=== PATIENT | female | born 1950 | race Caucasian/White ===

== ENCOUNTER 2018-07-22 12:27 | Inpatient (IN) | payer MEDICAID ==
[2018-07-22 12:54] LABS: ADD MAN DIFF? NO
[2018-07-22 12:56] LABS: WHITE BLOOD COUNT 10.5 10^3/ul (4.8-10.8)
[2018-07-22 12:56] LABS: BASOPHIL # 0.1 10^3/ul (0.0-0.1); BASOPHILS % 0.8 % (0.0-2.0); EOSINOPHILS # 0.2 10^3/ul (0.0-0.5); EOSINOPHILS % 1.5 % (0.0-7.0); HEMATOCRIT 39.9 % (37.0-47.0); HEMOGLOBIN 13.5 g/dl (12.0-16.0); LYMPHOCYTES # 2.6 10^3/ul (0.8-2.9); LYMPHOCYTES % 24.4 % (15.0-51.0); MEAN CORPUSCULAR HEMOGLOBIN 32.5 pg (29.0-33.0); MEAN CORPUSCULAR HGB CONC 33.8 g/dl (32.0-37.0); MEAN CORPUSCULAR VOLUME 95.9 fl (82.0-101.0); MEAN PLATELET VOLUME 8.8 fl (7.4-10.4); MONOCYTE # 0.8 10^3/ul (0.3-0.9); MONOCYTES % 7.8 % (0.0-11.0); NEUTROPHIL # 6.9 10^3/ul (1.6-7.5); NEUTROPHILS % 65.2 % (39.0-77.0); PLATELET COUNT 226 10^3/UL (140-415); RED BLOOD COUNT 4.16 10^6/ul (4.20-5.40)
[2018-07-22 13:17] LABS: ALANINE AMINOTRANSFERASE 23 IU/L (13-69); ALBUMIN/GLOBULIN RATIO 1.37; ALKALINE PHOSPHATASE 67 IU/L (42-121); ANION GAP 8 (5-13); ASPARTATE AMINO TRANSFERASE 20 IU/L (15-46); BILIRUBIN,INDIRECT 0.5 mg/dl (0-1.1); BILIRUBIN,TOTAL 0.5 mg/dl (0.2-1.3); BLOOD UREA NITROGEN 27 mg/dl (7-20); CALCIUM 9.1 mg/dl (8.4-10.2); CARBON DIOXIDE 25 mmol/L (21-31); CHLORIDE 102 mmol/L (97-110); CREATINE KINASE 62 IU/L (23-200); CREATININE 1.02 mg/dl (0.44-1.00); Estimated GFR 54 mL/min (>60); GLUCOSE 311 mg/dl (70-220); INR 0.97; LIPASE 136 U/L (23-300); PARTIAL THROMBOPLASTIN TIME 29.7 Sec (23.0-35.0); POTASSIUM 4.3 mmol/L (3.5-5.1); SALICYLATE 1.9 mg/dl (5.0-30.0); SODIUM 135 mmol/L (135-144); TOTAL PROTEIN 6.9 g/dl (6.1-8.1)
[2018-07-22 13:19] LABS: ACETAMINOPHEN < 10.0 ug/ml (10.0-30.0); ETHANOL < 10.0 mg/dl (0-0)
[2018-07-22 13:25] LABS: CK-MB 1.26 ng/ml (0.0-2.4)
[2018-07-22] MEDS: SOD CHLORIDE 0.9% 1,000 ML IV (13:26)
[2018-07-22] MEDS: DILTIAZEM 25 MG INJ IV (13:26)
[2018-07-22 13:30] LABS: TROPONIN-I < 0.012 ng/ml (0.000-0.120)
[2018-07-22] MEDS ORDERED: LORAZEPAM 2 MG INJ IV (13:30)
[2018-07-22 13:31] LABS: B-TYPE NATRIURETIC PEPTIDE 2750 PG/ML (0-125)
[2018-07-22 14:17] LABS: AMPHETAMINE/METHAMPHETAMINE Negative (NEGATIVE); BARBITURATES Negative (NEGATIVE); BENZODIAZEPINES Negative (NEGATIVE); CANNABINOIDS Negative (NEGATIVE); COCAINE Negative (NEGATIVE); OPIATES Negative (NEGATIVE)
[2018-07-22] MEDS: INSULIN LISPRO 100 UNIT/ML VIAL SC (14:22)
[2018-07-22] MEDS: ADENOSINE 6 MG INJ IV ×2 (14:45→14:55)
[2018-07-22] MEDS: AMIODARONE 150MG/D5W BOLUS IV* (14:59)
[2018-07-22] MEDS: CEFEPIME 1GM/50 ML (PMX) 50 ML IVPB (14:59)
[2018-07-22 15:28] LABS: ADD UMIC YES; UR ASCORBIC ACID NEGATIVE (NEGATIVE); UR BILIRUBIN (Dip) NEGATIVE (NEGATIVE); UR BLOOD (Dip) 1+ mg/dL (NEGATIVE); UR CLARITY SLIGHTLY CLOUDY (CLEAR); UR COLOR STRAW (YELLOW); UR GLUCOSE (Dip) 2+ mg/dL (NEGATIVE); UR KETONES (Dip) NEGATIVE (NEGATIVE); UR LEUKOCYTE ESTERASE (Dip) 2+ Leu/ul (NEGATIVE); UR NITRITE (Dip) NEGATIVE (NEGATIVE); UR RBC 1 /HPF (0-5); UR SPECIFIC GRAVITY (Dip) 1.005 (1.003-1.030); UR SQUAMOUS EPITHELIAL CELL FEW /HPF (FEW); UR TOTAL PROTEIN (Dip) NEGATIVE (NEGATIVE); UR UROBILINOGEN (Dip) NEGATIVE (NEGATIVE); UR WBC 10 /HPF (0-5)
[2018-07-22] MEDS: DIAZEPAM 5 MG/ML SYG IV (15:41)
[2018-07-22] MEDS: VANCOMYCIN 1 GM (PMX) 250 ML IVPB (15:53)
[2018-07-22] MEDS ORDERED: ONDANSETRON 4 MG INJ IV (16:00)
[2018-07-22] MEDS ORDERED: ACETAMINOPHEN 325 MG TAB PO (16:00)
[2018-07-22] MEDS ORDERED: NACL 0.9% 3 ML SYG IV (16:30)
[2018-07-22] MEDS ORDERED: HYDROCODONE/APAP (5/325) TAB PO (16:30)
[2018-07-22] MEDS ORDERED: GLUCOSE GEL 15 GRAM TUBE PO ×2 (17:30)
[2018-07-22] MEDS ORDERED: GLUCAGON 1 MG INJ IM (17:30)
[2018-07-22] MEDS ORDERED: GLUCOSE GEL 15 GRAM TUBE BUCCAL (17:30)
[2018-07-22] MEDS ORDERED: DEXTROSE 50% 50 ML SYRINGE IV ×2 (17:30)
[2018-07-22 21:30] LABS: FREE THYROXINE INDEX (Calc) 2.41 ug/ml (0.65-3.89); T3 UPTAKE 38.2 % (23.5-40.5); T4 (THYROXINE) 6.3 ug/dl (5.5-11.0)
[2018-07-22] MEDS: METOPROLOL 50 MG TAB PO (22:24)
[2018-07-22] MEDS: INSULIN ASPART [NOVOLOG] 3 ML PEN SC ×3 (22:31→22:45)
[2018-07-22] MEDS: INSULIN GLARGINE [LANTus] (100 UNITS/ML) SYG SC (23:31)
[2018-07-23] MEDS: traZODone 50 MG TAB PO ×2 (00:44→21:02)
[2018-07-23] MEDS ORDERED: PENDING SANTYL ORDER FOR WOUND CARE XX (01:30)
[2018-07-23 07:06] LABS: ADD MAN DIFF? NO
[2018-07-23 07:10] LABS: WHITE BLOOD COUNT 8.4 10^3/ul (4.8-10.8)
[2018-07-23 07:10] LABS: BASOPHIL # 0.1 10^3/ul (0.0-0.1); BASOPHILS % 0.8 % (0.0-2.0); EOSINOPHILS # 0.3 10^3/ul (0.0-0.5); EOSINOPHILS % 3.1 % (0.0-7.0); HEMATOCRIT 36.5 % (37.0-47.0); HEMOGLOBIN 11.9 g/dl (12.0-16.0); LYMPHOCYTES # 2.3 10^3/ul (0.8-2.9); LYMPHOCYTES % 26.9 % (15.0-51.0); MEAN CORPUSCULAR HEMOGLOBIN 31.8 pg (29.0-33.0); MEAN CORPUSCULAR HGB CONC 32.6 g/dl (32.0-37.0); MEAN CORPUSCULAR VOLUME 97.6 fl (82.0-101.0); MEAN PLATELET VOLUME 9.2 fl (7.4-10.4); MONOCYTE # 0.8 10^3/ul (0.3-0.9); NEUTROPHILS % 59.8 % (39.0-77.0); PLATELET COUNT 220 10^3/UL (140-415); RED BLOOD COUNT 3.74 10^6/ul (4.20-5.40); RED CELL DISTRIBUTION WIDTH 13.4 % (11.5-14.5)
[2018-07-23 07:22] LABS: HEMOGLOBIN A1C 9.6 % (0-5.9)
[2018-07-23 07:28] LABS: ALANINE AMINOTRANSFERASE 25 IU/L (13-69); ALBUMIN 3.6 g/dl (3.3-4.9); ALBUMIN/GLOBULIN RATIO 1.38; ALKALINE PHOSPHATASE 55 IU/L (42-121); ANION GAP 5 (5-13); ASPARTATE AMINO TRANSFERASE 15 IU/L (15-46); BILIRUBIN,INDIRECT 0.5 mg/dl (0-1.1); BILIRUBIN,TOTAL 0.5 mg/dl (0.2-1.3); BLOOD UREA NITROGEN 31 mg/dl (7-20); CARBON DIOXIDE 25 mmol/L (21-31); CHLORIDE 110 mmol/L (97-110); Estimated GFR 50 mL/min (>60); GLUCOSE 115 mg/dl (70-220); POTASSIUM 4.2 mmol/L (3.5-5.1); SODIUM 140 mmol/L (135-144); TOTAL PROTEIN 6.2 g/dl (6.1-8.1)
[2018-07-23] MEDS: INSULIN ASPART [NOVOLOG] 3 ML PEN SC ×7 (07:55→20:15)
[2018-07-23] MEDS: ENOXAPARIN 30 MG/0.3 ML SYG SC (08:30)
[2018-07-23] MEDS: ESCITALOPRAM 10 MG TAB PO (08:32)
[2018-07-23] MEDS: METOPROLOL 50 MG TAB PO ×2 (08:32→20:15)
[2018-07-23] MEDS: LOSARTAN 50 MG TAB PO (08:32)
[2018-07-23] MEDS: ASPIRIN (EC) 81 MG TAB PO (08:32)
[2018-07-23] MEDS: FUROSEMIDE 20 MG INJ IV ×2 (08:35→18:14)
[2018-07-23] MEDS: APIXABAN 5 MG TABLET PO (20:13)
[2018-07-23] MEDS: INSULIN GLARGINE [LANTus] (100 UNITS/ML) SYG SC (20:36)
[2018-07-24] MEDS: FUROSEMIDE 20 MG INJ IV ×2 (06:22→17:46)
[2018-07-24] MEDS: INSULIN ASPART [NOVOLOG] 3 ML PEN SC ×7 (08:54→21:00)
[2018-07-24] MEDS: ESCITALOPRAM 10 MG TAB PO (09:22)
[2018-07-24] MEDS: APIXABAN 5 MG TABLET PO ×2 (09:22→21:19)
[2018-07-24] MEDS: METOPROLOL 50 MG TAB PO ×2 (09:23→21:00)
[2018-07-24] MEDS: LOSARTAN 50 MG TAB PO (09:23)
[2018-07-24 12:41] LABS: ANION GAP 8 (5-13); BLOOD UREA NITROGEN 36 mg/dl (7-20); CALCIUM 9.8 mg/dl (8.4-10.2); CARBON DIOXIDE 31 mmol/L (21-31); CHLORIDE 103 mmol/L (97-110); CREATININE 1.12 mg/dl (0.44-1.00); Estimated GFR 49 mL/min (>60); GLUCOSE 106 mg/dl (70-220); POTASSIUM 3.8 mmol/L (3.5-5.1); SODIUM 142 mmol/L (135-144)
[2018-07-24] MEDS: INSULIN GLARGINE [LANTus] (100 UNITS/ML) SYG SC (21:25)
[2018-07-24] MEDS: traZODone 50 MG TAB PO ×2 (23:16→23:34)
[2018-07-25] MEDS: FUROSEMIDE 20 MG INJ IV (06:37)
[2018-07-25] MEDS: INSULIN ASPART [NOVOLOG] 3 ML PEN SC ×4 (07:55→11:56)
[2018-07-25] MEDS: APIXABAN 5 MG TABLET PO (08:42)
[2018-07-25] MEDS: ESCITALOPRAM 10 MG TAB PO (08:42)
[2018-07-25] MEDS: METOPROLOL 50 MG TAB PO (08:43)
[2018-07-25] MEDS: LOSARTAN 50 MG TAB PO (08:44)
== END 2018-07-25 13:05 | disposition home or self-care (01) | DRG 308 ==
LOC: E/R 12:27 → TEL 15:46
PROC: 5A2204Z Restoration of Cardiac Rhythm, Single (ICD-10-PCS; principal; 2018-07-22)
DX: I48.92 Unspecified atrial flutter (principal); J18.9 Pneumonia, unspecified organism; I50.33 Acute on chronic diastolic (congestive) heart failure; J81.1 Chronic pulmonary edema; Z72.0 Tobacco use; R73.9 Hyperglycemia, unspecified; E11.9 Type 2 diabetes mellitus without complications; R09.02 Hypoxemia; I95.9 Hypotension, unspecified
CPT/HCPCS: 71045; 80048; 80053; 80307; 81001; 82550; 82553; 82962; 83036; 83690; 83880; 84436; 84443; 84479; 84484; 85025; 85610; 85730; 87040-91; 87086; 93005; 93306; 96374; 96375; 99291-25

== ENCOUNTER 2018-08-14 21:14 | Inpatient (IN) | payer MEDICAID ==
[2018-08-14 22:05] LABS: ADD MAN DIFF? NO
[2018-08-14 22:08] LABS: BASOPHILS % 0.4 % (0.0-2.0); EOSINOPHILS % 0.1 % (0.0-7.0); HEMATOCRIT 38.5 % (37.0-47.0); HEMOGLOBIN 12.8 g/dl (12.0-16.0); LYMPHOCYTES # 1.4 10^3/ul (0.8-2.9); LYMPHOCYTES % 13.5 % (15.0-51.0); MEAN CORPUSCULAR HEMOGLOBIN 32.2 pg (29.0-33.0); MEAN CORPUSCULAR HGB CONC 33.2 g/dl (32.0-37.0); MEAN CORPUSCULAR VOLUME 96.7 fl (82.0-101.0); MEAN PLATELET VOLUME 8.9 fl (7.4-10.4); MONOCYTE # 0.9 10^3/ul (0.3-0.9); MONOCYTES % 8.5 % (0.0-11.0); NEUTROPHIL # 8.1 10^3/ul (1.6-7.5); PLATELET COUNT 201 10^3/UL (140-415); RED BLOOD COUNT 3.98 10^6/ul (4.20-5.40); RED CELL DISTRIBUTION WIDTH 12.3 % (11.5-14.5)
[2018-08-14 22:08] LABS: WHITE BLOOD COUNT 10.5 10^3/ul (4.8-10.8)
[2018-08-14 22:14] LABS: ALANINE AMINOTRANSFERASE 23 IU/L (13-69); ALBUMIN/GLOBULIN RATIO 1.17; ALKALINE PHOSPHATASE 75 IU/L (42-121); ANION GAP 8 (5-13); ASPARTATE AMINO TRANSFERASE 18 IU/L (15-46); BILIRUBIN,INDIRECT 0.5 mg/dl (0-1.1); BILIRUBIN,TOTAL 0.5 mg/dl (0.2-1.3); BLOOD UREA NITROGEN 25 mg/dl (7-20); CALCIUM 9.2 mg/dl (8.4-10.2); CARBON DIOXIDE 30 mmol/L (21-31); CHLORIDE 98 mmol/L (97-110); CREATININE 1.06 mg/dl (0.44-1.00); Estimated GFR 52 mL/min (>60); GLUCOSE 224 mg/dl (70-220); LIPASE 80 U/L (23-300); POTASSIUM 3.9 mmol/L (3.5-5.1); SODIUM 136 mmol/L (135-144); TOTAL PROTEIN 7.4 g/dl (6.1-8.1)
[2018-08-14 22:20] LABS: INR 1.01; PROTIME 13.4 Sec (11.9-14.9)
[2018-08-14 22:21] LABS: PARTIAL THROMBOPLASTIN TIME 31.1 Sec (23.0-35.0)
[2018-08-14 22:25] LABS: TROPONIN-I < 0.012 ng/ml (0.000-0.120)
[2018-08-14] MEDS: NITROGLYCERIN 2% 1 GM OINT PKT TD (22:25)
[2018-08-14] MEDS ORDERED: ONDANSETRON 4 MG INJ IV (23:30)
[2018-08-15] MEDS ORDERED: ONDANSETRON 4 MG INJ IV (02:00)
[2018-08-15] MEDS ORDERED: traZODone 50 MG TAB PO (02:00)
[2018-08-15] MEDS ORDERED: ALBUTEROL/IPRATROPIUM (NEB) 3 ML AMP HHN (02:00)
[2018-08-15] MEDS ORDERED: ACETAMINOPHEN 325 MG TAB PO (02:00)
[2018-08-15] MEDS ORDERED: NACL 0.9% 3 ML SYG IV (02:00)
[2018-08-15] MEDS ORDERED: NITROGLYCERIN (SL) 0.4 MG TAB SL (02:00)
[2018-08-15] MEDS: ACETAMINOPHEN 325 MG TAB PO (02:12)
[2018-08-15] MEDS: ACCU-CHEK XX (02:23)
[2018-08-15] MEDS ORDERED: ZOLPIDEM 5 MG TAB PO (02:30)
[2018-08-15] MEDS ORDERED: GLUCOSE GEL 15 GRAM TUBE BUCCAL (02:30)
[2018-08-15] MEDS ORDERED: GLUCAGON 1 MG INJ IM (02:30)
[2018-08-15] MEDS ORDERED: GLUCOSE GEL 15 GRAM TUBE PO ×2 (02:30)
[2018-08-15] MEDS ORDERED: DEXTROSE 50% 50 ML SYRINGE IV ×2 (02:30)
[2018-08-15 02:32] LABS: ADD MAN DIFF? NO
[2018-08-15 02:33] LABS: BASOPHIL # 0.1 10^3/ul (0.0-0.1); BASOPHILS % 0.5 % (0.0-2.0); HEMATOCRIT 37.2 % (37.0-47.0); HEMOGLOBIN 12.6 g/dl (12.0-16.0); LYMPHOCYTES # 1.3 10^3/ul (0.8-2.9); LYMPHOCYTES % 12.6 % (15.0-51.0); MEAN CORPUSCULAR HEMOGLOBIN 32.6 pg (29.0-33.0); MEAN CORPUSCULAR HGB CONC 33.9 g/dl (32.0-37.0); MEAN CORPUSCULAR VOLUME 96.4 fl (82.0-101.0); MEAN PLATELET VOLUME 8.7 fl (7.4-10.4); MONOCYTE # 1.2 10^3/ul (0.3-0.9); MONOCYTES % 11.7 % (0.0-11.0); NEUTROPHIL # 7.4 10^3/ul (1.6-7.5); PLATELET COUNT 190 10^3/UL (140-415); RED BLOOD COUNT 3.86 10^6/ul (4.20-5.40); RED CELL DISTRIBUTION WIDTH 12.4 % (11.5-14.5)
[2018-08-15 02:33] LABS: WHITE BLOOD COUNT 9.9 10^3/ul (4.8-10.8)
[2018-08-15 02:50] LABS: CREATINE KINASE 35 IU/L (23-200)
[2018-08-15 02:53] LABS: ALANINE AMINOTRANSFERASE 25 IU/L (13-69); ALBUMIN 3.9 g/dl (3.3-4.9); ALKALINE PHOSPHATASE 78 IU/L (42-121); ANION GAP 10 (5-13); ASPARTATE AMINO TRANSFERASE 15 IU/L (15-46); BILIRUBIN,INDIRECT 0.6 mg/dl (0-1.1); BILIRUBIN,TOTAL 0.6 mg/dl (0.2-1.3); BLOOD UREA NITROGEN 25 mg/dl (7-20); CALCIUM 8.9 mg/dl (8.4-10.2); CARBON DIOXIDE 27 mmol/L (21-31); CHLORIDE 101 mmol/L (97-110); Estimated GFR 55 mL/min (>60); GLUCOSE 230 mg/dl (70-220); MAGNESIUM 2.2 mg/dl (1.7-2.5); POTASSIUM 4.2 mmol/L (3.5-5.1); SODIUM 138 mmol/L (135-144); TOTAL PROTEIN 6.9 g/dl (6.1-8.1)
[2018-08-15 03:03] LABS: CK INDEX 0.6; CK-MB < 0.22 ng/ml (0.0-2.4); TROPONIN-I < 0.012 ng/ml (0.000-0.120)
[2018-08-15] MEDS ORDERED: NON-FORMULARY/PATIENT OWN MED (Insulin Lispro (Humalog Kwikpen U-100) 15 UNIT) SQ (07:55)
[2018-08-15] MEDS: ESCITALOPRAM 10 MG TAB PO (08:26)
[2018-08-15] MEDS: GABAPENTIN 300 MG CAP PO ×2 (08:26→20:31)
[2018-08-15] MEDS: APIXABAN 5 MG TABLET PO ×2 (08:26→20:31)
[2018-08-15] MEDS: METOPROLOL (XL) 50 MG TAB PO (08:27)
[2018-08-15] MEDS: LOSARTAN 50 MG TAB PO (08:28)
[2018-08-15 08:34] LABS: CREATINE KINASE 34 IU/L (23-200)
[2018-08-15 08:46] LABS: CK INDEX 0.7; CK-MB 0.25 ng/ml (0.0-2.4); TROPONIN-I < 0.012 ng/ml (0.000-0.120)
[2018-08-15] MEDS: INSULIN ASPART [NOVOLOG] 3 ML PEN SC ×7 (10:17→21:26)
[2018-08-15] MEDS ORDERED: INSULIN LISPRO 18 UNIT SQ (17:55)
[2018-08-15] MEDS: CIPROFLOXACIN 400MG/D5W 200 ML IVPB ×2 (18:53→22:49)
[2018-08-15] MEDS: metroNIDAZOLE 500 MG/NS (PMX) 100 ML IVPB ×2 (18:53→22:49)
[2018-08-15] MEDS: DILTIAZEM 25 MG INJ IV (18:54)
[2018-08-15] MEDS: INSULIN GLARGINE [LANTus] (100 UNITS/ML) SYG SC (21:26)
[2018-08-16] MEDS: ACCU-CHEK XX (02:33)
[2018-08-16 03:31] LABS: ADD UMIC YES; UR ASCORBIC ACID 20 mg/dL (NEGATIVE); UR BACTERIA FEW /HPF (NONE SEEN); UR BILIRUBIN (Dip) NEGATIVE (NEGATIVE); UR BLOOD (Dip) 3+ mg/dL (NEGATIVE); UR CLARITY CLOUDY (CLEAR); UR COLOR YELLOW (YELLOW); UR GLUCOSE (Dip) 1+ mg/dL (NEGATIVE); UR GRANULAR CAST FEW /HPF (NONE SEEN); UR HYALINE CAST FEW /HPF (NONE SEEN); UR KETONES (Dip) NEGATIVE (NEGATIVE); UR LEUKOCYTE ESTERASE (Dip) 3+ Leu/ul (NEGATIVE); UR MUCUS FEW /HPF (NONE SEEN); UR NITRITE (Dip) NEGATIVE (NEGATIVE); UR RBC 56 /HPF (0-5); UR SPECIFIC GRAVITY (Dip) 1.018 (1.003-1.030); UR TOTAL PROTEIN (Dip) 2+ mg/dl (NEGATIVE); UR UROBILINOGEN (Dip) NEGATIVE (NEGATIVE); UR WBC > 182 /HPF (0-5)
[2018-08-16] MEDS: metroNIDAZOLE 500 MG/NS (PMX) 100 ML IVPB (05:51)
[2018-08-16 06:48] LABS: ADD MAN DIFF? NO
[2018-08-16 06:51] LABS: BASOPHIL # 0.1 10^3/ul (0.0-0.1); BASOPHILS % 0.6 % (0.0-2.0); EOSINOPHILS % 0.3 % (0.0-7.0); HEMATOCRIT 36.9 % (37.0-47.0); HEMOGLOBIN 12.5 g/dl (12.0-16.0); LYMPHOCYTES # 1.6 10^3/ul (0.8-2.9); LYMPHOCYTES % 18.1 % (15.0-51.0); MEAN CORPUSCULAR HEMOGLOBIN 32.2 pg (29.0-33.0); MEAN CORPUSCULAR HGB CONC 33.9 g/dl (32.0-37.0); MEAN CORPUSCULAR VOLUME 95.1 fl (82.0-101.0); MEAN PLATELET VOLUME 9.2 fl (7.4-10.4); MONOCYTE # 1.3 10^3/ul (0.3-0.9); MONOCYTES % 14.2 % (0.0-11.0); NEUTROPHILS % 66.5 % (39.0-77.0); PLATELET COUNT 178 10^3/UL (140-415); RED BLOOD COUNT 3.88 10^6/ul (4.20-5.40)
[2018-08-16 07:19] LABS: ANION GAP 7 (5-13); BLOOD UREA NITROGEN 27 mg/dl (7-20); CALCIUM 8.7 mg/dl (8.4-10.2); CARBON DIOXIDE 28 mmol/L (21-31); CHLORIDE 102 mmol/L (97-110); CREATININE 1.01 mg/dl (0.44-1.00); Estimated GFR 55 mL/min (>60); GLUCOSE 165 mg/dl (70-220); MAGNESIUM 2.4 mg/dl (1.7-2.5); PHOSPHORUS 3.8 mg/dl (2.5-4.9); POTASSIUM 3.8 mmol/L (3.5-5.1); SODIUM 137 mmol/L (135-144)
[2018-08-16] MEDS: INSULIN ASPART [NOVOLOG] 3 ML PEN SC ×4 (08:00→12:15)
[2018-08-16] MEDS: CIPROFLOXACIN 400MG/D5W 200 ML IVPB (08:26)
[2018-08-16] MEDS: LOSARTAN 50 MG TAB PO (08:27)
[2018-08-16] MEDS: GABAPENTIN 300 MG CAP PO (08:27)
[2018-08-16] MEDS: METOPROLOL (XL) 50 MG TAB PO (08:27)
[2018-08-16] MEDS: APIXABAN 5 MG TABLET PO (08:27)
[2018-08-16] MEDS: ESCITALOPRAM 10 MG TAB PO (08:27)
[2018-08-16 09:16] LABS: HEMOGLOBIN A1C 7.9 % (0-5.9)
== END 2018-08-16 17:44 | disposition home or self-care (01) | DRG 313 ==
LOC: E/R 21:14 → TEL 23:29
DX: R07.9 Chest pain, unspecified (principal); R65.10 Systemic inflammatory response syndrome (SIRS) of non-infectious origin without acute organ dysfunction; E10.65 Type 1 diabetes mellitus with hyperglycemia; N39.0 Urinary tract infection, site not specified; J44.9 Chronic obstructive pulmonary disease, unspecified; R00.0 Tachycardia, unspecified; F32.9 Major depressive disorder, single episode, unspecified; Z88.0 Allergy status to penicillin; Z91.048 Other nonmedicinal substance allergy status; Z79.4 Long term (current) use of insulin
CPT/HCPCS: 36415; 71045; 80048; 80053; 81001; 82550; 82553; 82962; 83036; 83690; 83735; 84100; 84484; 85025; 85610; 85730; 87040-91; 87086; 93005; 99285-25; G0378

== ENCOUNTER 2018-11-03 22:10 | Inpatient (IN) | payer MEDICAID ==
[2018-11-03] MEDS: SOD CHLORIDE 0.9% 500 ML IV (22:53)
[2018-11-03] MEDS: ONDANSETRON 4 MG INJ IV (22:53)
[2018-11-03 23:06] LABS: ADD MAN DIFF? NO
[2018-11-03 23:07] LABS: BASOPHIL # 0.1 10^3/ul (0.0-0.1); BASOPHILS % 0.5 % (0.0-2.0); EOSINOPHILS # 0.1 10^3/ul (0.0-0.5); EOSINOPHILS % 0.9 % (0.0-7.0); HEMATOCRIT 40.6 % (37.0-47.0); LYMPHOCYTES # 1.3 10^3/ul (0.8-2.9); LYMPHOCYTES % 12.7 % (15.0-51.0); MEAN CORPUSCULAR VOLUME 96.7 fl (82.0-101.0); MEAN PLATELET VOLUME 9.4 fl (7.4-10.4); MONOCYTE # 0.9 10^3/ul (0.3-0.9); MONOCYTES % 9.1 % (0.0-11.0); NEUTROPHIL # 7.6 10^3/ul (1.6-7.5); NEUTROPHILS % 76.3 % (39.0-77.0); PLATELET COUNT 248 10^3/UL (140-415); RED CELL DISTRIBUTION WIDTH 12.2 % (11.5-14.5)
[2018-11-03 23:21] LABS: ADD UMIC YES; UR ASCORBIC ACID NEGATIVE (NEGATIVE); UR BACTERIA MODERATE /HPF (NONE SEEN); UR BILIRUBIN (Dip) NEGATIVE (NEGATIVE); UR BLOOD (Dip) 2+ mg/dL (NEGATIVE); UR CLARITY CLOUDY (CLEAR); UR COLOR YELLOW (YELLOW); UR GLUCOSE (Dip) 3+ mg/dL (NEGATIVE); UR KETONES (Dip) 1+ mg/dL (NEGATIVE); UR LEUKOCYTE ESTERASE (Dip) 2+ Leu/ul (NEGATIVE); UR NITRITE (Dip) POSITIVE (NEGATIVE); UR RBC 31 /HPF (0-5); UR SPECIFIC GRAVITY (Dip) 1.011 (1.003-1.030); UR TOTAL PROTEIN (Dip) 3+ mg/dl (NEGATIVE); UR UROBILINOGEN (Dip) NEGATIVE (NEGATIVE); UR WBC 177 /HPF (0-5)
[2018-11-03 23:25] LABS: ALANINE AMINOTRANSFERASE 45 IU/L (13-69); ALBUMIN 3.7 g/dl (3.3-4.9); ALBUMIN/GLOBULIN RATIO 1.08; ALKALINE PHOSPHATASE 108 IU/L (42-121); ANION GAP 10 (5-13); ASPARTATE AMINO TRANSFERASE 25 IU/L (15-46); BILIRUBIN,INDIRECT 0.7 mg/dl (0-1.1); BILIRUBIN,TOTAL 0.7 mg/dl (0.2-1.3); BLOOD UREA NITROGEN 25 mg/dl (7-20); CALCIUM 9.2 mg/dl (8.4-10.2); CARBON DIOXIDE 26 mmol/L (21-31); CHLORIDE 102 mmol/L (97-110); CREATININE 1.02 mg/dl (0.44-1.00); Estimated GFR 54 mL/min (>60); GLUCOSE 317 mg/dl (70-220); LIPASE 101 U/L (23-300); POTASSIUM 4.1 mmol/L (3.5-5.1); SODIUM 138 mmol/L (135-144); TOTAL PROTEIN 7.1 g/dl (6.1-8.1)
[2018-11-03 23:39] LABS: TROPONIN-I 0.146 ng/ml (0.000-0.120)
[2018-11-04] MEDS: CEFTRIAXONE 1 GM/50 ML (PMX) 50 ML IVPB (00:07)
[2018-11-04] MEDS: DILTIAZEM 25 MG INJ IV (00:19)
[2018-11-04] MEDS ORDERED: FENTAnyl 50 MCG/ML VIAL (00:34)
[2018-11-04] MEDS ORDERED: LIDOCAINE 100 MG SYRINGE (00:34)
[2018-11-04] MEDS: LIDOCAINE 100 MG SYRINGE IV (00:41)
[2018-11-04] MEDS ORDERED: ADENOSINE 2 ML ×2 (00:52→00:56)
[2018-11-04] MEDS: FENTAnyl 50 MCG/ML VIAL IV (00:55)
[2018-11-04] MEDS ORDERED: METOPROLOL 5 MG INJ (00:56)
[2018-11-04] MEDS: METOPROLOL (XL) 100 MG TAB PO (01:53)
[2018-11-04] MEDS: MAGNESIUM SULFATE 2 GM/50 ML 50 ML IVPB (02:24)
[2018-11-04] MEDS: AMIODARONE 900 MG in DEXTROSE 5% 482 ML IV ×2 (02:33→08:34)
[2018-11-04] MEDS ORDERED: GLUCOSE GEL 15 GRAM TUBE BUCCAL (03:00)
[2018-11-04] MEDS ORDERED: NON-FORMULARY/PATIENT OWN MED (Temazepam* 30 MG) PO (03:00)
[2018-11-04] MEDS ORDERED: GLUCAGON 1 MG INJ IM (03:00)
[2018-11-04] MEDS ORDERED: GLUCOSE GEL 15 GRAM TUBE PO ×2 (03:00)
[2018-11-04] MEDS ORDERED: DEXTROSE 50% 50 ML SYRINGE IV (03:00)
[2018-11-04] MEDS ORDERED: INSULIN DETEMIR [LEVEMIR] 3ML CART SC (03:00)
[2018-11-04] MEDS ORDERED: ACETAMINOPHEN 650MG/20.3ML CUP PO (03:00)
[2018-11-04] MEDS: ENOXAPARIN 60 MG/0.6 ML SYG SC (03:48)
[2018-11-04] MEDS: INSULIN ASPART [NOVOLOG] 3 ML PEN SC ×5 (05:30→20:24)
[2018-11-04] MEDS: SOD CHLORIDE 0.9% 1,000 ML IV ×3 (05:38→23:35)
[2018-11-04 05:47] LABS: ADD MAN DIFF? NO
[2018-11-04 05:53] LABS: WHITE BLOOD COUNT 8.3 10^3/ul (4.8-10.8)
[2018-11-04 05:53] LABS: BASOPHILS % 0.4 % (0.0-2.0); EOSINOPHILS % 0.4 % (0.0-7.0); HEMATOCRIT 35.7 % (37.0-47.0); HEMOGLOBIN 11.4 g/dl (12.0-16.0); LYMPHOCYTES # 1.6 10^3/ul (0.8-2.9); LYMPHOCYTES % 19.3 % (15.0-51.0); MEAN CORPUSCULAR HEMOGLOBIN 31.3 pg (29.0-33.0); MEAN CORPUSCULAR HGB CONC 31.9 g/dl (32.0-37.0); MEAN CORPUSCULAR VOLUME 98.1 fl (82.0-101.0); MEAN PLATELET VOLUME 9.7 fl (7.4-10.4); MONOCYTE # 0.8 10^3/ul (0.3-0.9); MONOCYTES % 9.8 % (0.0-11.0); NEUTROPHIL # 5.8 10^3/ul (1.6-7.5); NEUTROPHILS % 69.9 % (39.0-77.0); PLATELET COUNT 220 10^3/UL (140-415); RED BLOOD COUNT 3.64 10^6/ul (4.20-5.40); RED CELL DISTRIBUTION WIDTH 12.3 % (11.5-14.5)
[2018-11-04 06:24] LABS: CREATINE KINASE 84 IU/L (23-200)
[2018-11-04 06:37] LABS: CK INDEX 7.6; CK-MB 6.37 ng/ml (0.0-2.4)
[2018-11-04 06:43] LABS: FREE T4 (FREE THYROXINE) 1.57 ng/dl (0.78-2.44)
[2018-11-04 06:46] LABS: ALANINE AMINOTRANSFERASE 36 IU/L (13-69); ALBUMIN 2.7 g/dl (3.3-4.9); ALKALINE PHOSPHATASE 71 IU/L (42-121); ANION GAP 4 (5-13); ASPARTATE AMINO TRANSFERASE 21 IU/L (15-46); BILIRUBIN,INDIRECT 0.4 mg/dl (0-1.1); BILIRUBIN,TOTAL 0.4 mg/dl (0.2-1.3); BLOOD UREA NITROGEN 23 mg/dl (7-20); CALCIUM 8.1 mg/dl (8.4-10.2); CARBON DIOXIDE 26 mmol/L (21-31); CHLORIDE 109 mmol/L (97-110); CHOL/HDL RATIO 2.3 RATIO; CHOLESTEROL 74 mg/dl (100-200); CREATININE 0.94 mg/dl (0.44-1.00); Estimated GFR 60 mL/min (>60); GLUCOSE 126 mg/dl (70-220); HDL CHOLESTEROL 31 mg/dl (35-98); LDL CHOLESTEROL,CALCULATED 28 mg/dl; MAGNESIUM 2.8 mg/dl (1.7-2.5); PHOSPHORUS 3.2 mg/dl (2.5-4.9); POTASSIUM 4.5 mmol/L (3.5-5.1); SODIUM 139 mmol/L (135-144); TOTAL PROTEIN 5.4 g/dl (6.1-8.1); TRIGLYCERIDES 74 mg/dl (0-149)
[2018-11-04] MEDS: ONDANSETRON 4 MG INJ IV ×2 (06:50→12:58)
[2018-11-04] MEDS: RANOLAZINE (SR) 500 MG TAB PO ×2 (08:21→20:11)
[2018-11-04] MEDS: GABAPENTIN 300 MG CAP PO ×2 (08:23→20:11)
[2018-11-04] MEDS: METOPROLOL (XL) 50 MG TAB PO (08:23)
[2018-11-04] MEDS: ESCITALOPRAM 10 MG TAB PO (08:23)
[2018-11-04] MEDS: LOSARTAN 50 MG TAB PO (08:27)
[2018-11-04] MEDS ORDERED: ZOLPIDEM 5 MG TAB PO (09:00)
[2018-11-04] MEDS: CIPROFLOXACIN 400MG/D5W 200 ML IVPB ×2 (09:30→20:11)
[2018-11-04] MEDS: INSULIN GLARGINE [LANTus] (100 UNITS/ML) SYG SC (09:33)
[2018-11-04 09:41] LABS: CREATINE KINASE 91 IU/L (23-200)
[2018-11-04 09:58] LABS: CK INDEX 7.6; CK-MB 6.91 ng/ml (0.0-2.4)
[2018-11-04] MEDS ORDERED: ACETAMINOPHEN 325 MG TAB PO (10:30)
[2018-11-04 14:08] LABS: CREATINE KINASE 81 IU/L (23-200)
[2018-11-04 14:21] LABS: CK INDEX 7.2; CK-MB 5.83 ng/ml (0.0-2.4)
[2018-11-04] MEDS: ASPIRIN 81 MG TAB PO (14:26)
[2018-11-04] MEDS: traZODone 50 MG TAB PO (20:11)
[2018-11-04] MEDS: ENOXAPARIN 30 MG/0.3 ML SYG SC (20:24)
[2018-11-05] MEDS: INSULIN ASPART [NOVOLOG] 3 ML PEN SC ×6 (01:00→20:27)
[2018-11-05] MEDS: DEXTROSE 50% 50 ML SYRINGE IV (01:43)
[2018-11-05] MEDS ORDERED: ACCU-CHEK XX (02:00)
[2018-11-05 05:14] LABS: ADD MAN DIFF? NO
[2018-11-05 05:17] LABS: BASOPHILS % 0.3 % (0.0-2.0); EOSINOPHILS # 0.1 10^3/ul (0.0-0.5); EOSINOPHILS % 1.1 % (0.0-7.0); HEMATOCRIT 35.4 % (37.0-47.0); HEMOGLOBIN 11.1 g/dl (12.0-16.0); LYMPHOCYTES # 2.8 10^3/ul (0.8-2.9); MEAN CORPUSCULAR HEMOGLOBIN 30.7 pg (29.0-33.0); MEAN CORPUSCULAR HGB CONC 31.4 g/dl (32.0-37.0); MEAN CORPUSCULAR VOLUME 97.8 fl (82.0-101.0); MEAN PLATELET VOLUME 9.3 fl (7.4-10.4); MONOCYTE # 1.1 10^3/ul (0.3-0.9); MONOCYTES % 11.9 % (0.0-11.0); NEUTROPHIL # 5.1 10^3/ul (1.6-7.5); NEUTROPHILS % 55.5 % (39.0-77.0); PLATELET COUNT 213 10^3/UL (140-415); RED BLOOD COUNT 3.62 10^6/ul (4.20-5.40); RED CELL DISTRIBUTION WIDTH 12.8 % (11.5-14.5)
[2018-11-05 05:17] LABS: WHITE BLOOD COUNT 9.2 10^3/ul (4.8-10.8)
[2018-11-05 05:35] LABS: ANION GAP 6 (5-13); BLOOD UREA NITROGEN 36 mg/dl (7-20); CALCIUM 8.2 mg/dl (8.4-10.2); CARBON DIOXIDE 23 mmol/L (21-31); CHLORIDE 109 mmol/L (97-110); CREATININE 2.02 mg/dl (0.44-1.00); Estimated GFR 25 mL/min (>60); MAGNESIUM 2.6 mg/dl (1.7-2.5); POTASSIUM 3.8 mmol/L (3.5-5.1); SODIUM 138 mmol/L (135-144)
[2018-11-05 05:45] LABS: GLUCOSE 45 mg/dl (70-220)
[2018-11-05] MEDS: INSULIN GLARGINE [LANTus] (100 UNITS/ML) SYG SC (08:53)
[2018-11-05] MEDS: ENOXAPARIN 30 MG/0.3 ML SYG SC (08:55)
[2018-11-05] MEDS: RANOLAZINE (SR) 500 MG TAB PO ×2 (08:59→20:27)
[2018-11-05] MEDS: ESCITALOPRAM 10 MG TAB PO (08:59)
[2018-11-05] MEDS: LOSARTAN 50 MG TAB PO (08:59)
[2018-11-05] MEDS ORDERED: ENOXAPARIN 40 MG/0.4 ML SYG SC (09:00)
[2018-11-05] MEDS: METOPROLOL (XL) 50 MG TAB PO (09:00)
[2018-11-05] MEDS: GABAPENTIN 300 MG CAP PO ×2 (09:00→20:27)
[2018-11-05] MEDS: ASPIRIN 81 MG TAB PO (09:00)
[2018-11-05] MEDS: CIPROFLOXACIN 400MG/D5W 200 ML IVPB (09:05)
[2018-11-05] MEDS: APIXABAN 5 MG TABLET PO ×2 (11:19→20:27)
[2018-11-05] MEDS: SOD CHLORIDE 0.9% 1,000 ML IV ×2 (12:46→23:24)
[2018-11-05] MEDS: CEFEPIME 1GM/50 ML (PMX) 50 ML IVPB (12:46)
[2018-11-05] MEDS: traZODone 50 MG TAB PO (21:39)
[2018-11-06] MEDS: INSULIN ASPART [NOVOLOG] 3 ML PEN SC ×5 (00:15→17:00)
[2018-11-06 05:49] LABS: ANION GAP 4 (5-13); BLOOD UREA NITROGEN 33 mg/dl (7-20); CALCIUM 8.3 mg/dl (8.4-10.2); CARBON DIOXIDE 23 mmol/L (21-31); CHLORIDE 112 mmol/L (97-110); CREATININE 1.54 mg/dl (0.44-1.00); Estimated GFR 34 mL/min (>60); GLUCOSE 64 mg/dl (70-220); SODIUM 139 mmol/L (135-144)
[2018-11-06] MEDS: ESCITALOPRAM 10 MG TAB PO (07:52)
[2018-11-06] MEDS: RANOLAZINE (SR) 500 MG TAB PO (07:52)
[2018-11-06] MEDS: GABAPENTIN 300 MG CAP PO (07:52)
[2018-11-06] MEDS: LOSARTAN 50 MG TAB PO (07:52)
[2018-11-06] MEDS: METOPROLOL (XL) 50 MG TAB PO (07:52)
[2018-11-06] MEDS: APIXABAN 5 MG TABLET PO (07:52)
[2018-11-06] MEDS: INSULIN GLARGINE [LANTus] (100 UNITS/ML) SYG SC (08:08)
[2018-11-06] MEDS: CEFEPIME 1GM/50 ML (PMX) 50 ML IVPB (12:23)
[2018-11-06] MEDS: hydrALAzine 20 MG INJ IV (15:38)
[2018-11-06 18:33] LABS: GLUCOSE 64 mg/dl (70-220)
== END 2018-11-06 18:15 | disposition home or self-care (01) | DRG 309 ==
LOC: 6WM 11-05 13:29 → E/R 22:10 → ICU 23:41
PROVIDERS: Internal Medicine
DX: I47.1 Supraventricular tachycardia (principal); I50.30 Unspecified diastolic (congestive) heart failure; N39.0 Urinary tract infection, site not specified; I13.0 Hypertensive heart and chronic kidney disease with heart failure and stage 1 through stage 4 chronic kidney disease, or unspecified chronic kidney disease; N17.9 Acute kidney failure, unspecified; E10.22 Type 1 diabetes mellitus with diabetic chronic kidney disease; I11.0 Hypertensive heart disease with heart failure; I48.92 Unspecified atrial flutter; F32.9 Major depressive disorder, single episode, unspecified; F41.9 Anxiety disorder, unspecified; E11.9 Type 2 diabetes mellitus without complications; N18.9 Chronic kidney disease, unspecified; B96.20 Unspecified Escherichia coli [E. coli] as the cause of diseases classified elsewhere; Z79.4 Long term (current) use of insulin; Z79.82 Long term (current) use of aspirin
CPT/HCPCS: 36415; 71045; 80048; 80053; 80061; 81001; 82550; 82553; 82947; 82962; 83690; 83735; 84100; 84439; 84443; 84484; 85025; 87081; 87086; 93005; 93306; 96374; 99285-25